=== PATIENT | female | born 1955 | race Hispanic/Latino ===

== ENCOUNTER 2018-06-13 17:53 | Inpatient (IN) | payer OTHER ==
[~2018-06-13] VITALS: Ht 157.5 cm; Wt 72.4 kg
[~2018-06-13 17:53] MED LIST: AEC81 PO; ATOR40TA71 PO; CALC600T12 PO; CARV12.511 PO; CETI10TA57 PO; CHOL400T4 PO; CLOP75TA32 PO; FISH1CAP63 PO; FURO20TA4 PO; LOSA100T20 PO; MONT10TA24 PO; OXYB5TAB10 PO; RANO500T3 PO
[2018-06-13 18:53] LABS: BILIRUBIN,URINE Small (NEGATIVE); COLOR,URINE Dark Yellow (YELLOW); GLUCOSE, URINE (UA) Negative (NEGATIVE); KETONES,URINE Trace mg/dL (NEGATIVE); LEUKOCYTE ESTERASE ,URINE Trace (NEGATIVE); NITRATE,URINE Negative (NEGATIVE); OCCULT BLOOD,URINE Negative (NEGATIVE); PROTEIN,URINE Negative (NEGATIVE)
[2018-06-13 18:55] LABS: APPEARANCE,URINE SLIGHTLY CLOUDY (CLEAR)
[2018-06-13 19:05] LABS: BACTERIA,URINE Few /HPF (None Seen); CALCIUM OXALATE CRYSTALS,UR Few /LPF (None Seen); MUCUS,URINE Moderate LPF (None Seen); RBC,URINE 0-1 /HPF (0-1); SQUAMOUS EPITHELIAL CELL,UR Few /HPF (0-2)
[2018-06-13] MEDS ORDERED: MORPHINE SULFATE 2 MG/ML 1ML SYG ONE (19:29)
[2018-06-13] MEDS ORDERED: ONDANSETRON HCL 4 MG/2 ML VIAL ONE (19:29)
[2018-06-13 19:31] LABS: BASOPHILS % (AUTO) 1.1 % (0.0-5.0); EOSINOPHILS % (AUTO) 0.6 % (0.0-8.0); HEMATOCRIT 43.6 % (36-48); LYMPHOCYTES % (AUTO) 32.3 % (21.0-51.0); MEAN CORPUSCULAR HGB CONC 33.9 g/dL (32.0-36.0); MEAN CORPUSCULAR VOLUME 91.2 fL (79-99); MONOCYTES % (AUTO) 10.1 % (3.0-13.0); NEUTROPHILS % (AUTO) 55.9 % (40.0-77.0); PLATELET COUNT (AUTO) 316 K/uL (130-400); RED BLOOD CELL COUNT(AUTO) 4.78 MIL/uL (4.00-5.50); RED CELL DISTRIBUTION WIDTH 14.2 % (11.0-15.5); WHITE BLOOD COUNT (AUTO) 7.6 K/uL (4.8-10.8)
[2018-06-13] MEDS ORDERED: IOHEXOL-350 75 ML VIAL IV ONE (19:31)
[2018-06-13 19:48] LABS: CREATININE 0.9 mg/dL (0.5-1.5); POTASSIUM 3.9 mmol/L (3.5-5.1)
[2018-06-13 19:52] LABS: ALBUMIN 3.5 g/dL (3.5-5.0); BILIRUBIN,TOTAL 0.9 mg/dL (0.2-1.0); TOTAL PROTEIN, SERUM 7.6 g/dL (6.0-8.3)
[2018-06-13] MEDS ORDERED: ONDANSETRON HCL 4 MG/2 ML VIAL IV PRN (23:45)
[2018-06-13] MEDS ORDERED: LACTULOSE 20 GM/30 ML UDCUP PO PRN (23:45)
[2018-06-13] MEDS ORDERED: MORPHINE SULFATE 2 MG/ML 1ML SYG IV PRN (23:45)
[2018-06-13] MEDS ORDERED: ACETAMINOPHEN 325 MG TAB PO PRN (23:45)
[2018-06-14 00:45] VITALS: BP 112/63
[2018-06-14] MEDS ORDERED: LOSA50TA25 PO (01:40)
[2018-06-14] MEDS: CALCIUM CARBON 500MG CHEW TAB PO SCH ×4 (02:15→21:42)
[2018-06-14 04:00] VITALS: BP 100/52
[2018-06-14] MEDS: SODIUM CHLORIDE 0.9% 1000ML 1,000 ML IV SCH (06:51)
[2018-06-14] MEDS: LEVOFLOXACIN 500 MG/D5W 100 ML 100 ML IV SCH (06:51)
[2018-06-14 08:00] VITALS: BP 93/54
[2018-06-14] MEDS ORDERED: RANOLAZINE 500 MG TAB.SR.12H PO SCH (09:00)
[2018-06-14] MEDS: CARVEDILOL 12.5 MG TABLET PO SCH ×2 (09:00→21:41)
[2018-06-14] MEDS: ENOXAPARIN SODIUM 30 MG/0.3 ML SQ SCH (09:42)
[2018-06-14] MEDS: MONTELUKAST SODIUM 10 MG TAB PO SCH (09:43)
[2018-06-14] MEDS: OXYBUTYNIN CHLORIDE 5 MG TABLET PO SCH ×3 (09:43→21:41)
[2018-06-14] MEDS: CETIRIZINE HCL 5 MG TABLET PO SCH (09:43)
[2018-06-14] MEDS: FAMOTIDINE 20MG TAB 20 MG TAB PO SCH ×2 (09:43→21:41)
[2018-06-14] MEDS: FUROSEMIDE 20 MG TABLET PO SCH (09:43)
[2018-06-14] MEDS: KETOROLAC TROMETHAMINE 15MG/ML IV PRN ×2 (10:04→22:59)
[2018-06-14 11:00] VITALS: BP 99/55
[2018-06-14 16:00] VITALS: BP 96/40
[2018-06-14 19:00] VITALS: BP 131/67
[2018-06-14] MEDS ORDERED: LOSARTAN 100 MG TABLET PO SCH (21:00)
[2018-06-14] MEDS: LOSARTAN 50 MG TABLET PO SCH (21:41)
[2018-06-14] MEDS: ATORVASTATIN CALCIUM 40 MG TABLET PO SCH (21:42)
[2018-06-15] VITALS (13 sets, daily range): BP systolic 89–139; BP diastolic 55–77
[2018-06-15] MEDS: SODIUM CHLORIDE 0.9% 1000ML 1,000 ML IV SCH ×2 (02:15→22:15)
[2018-06-15 06:01] LABS: BASOPHILS % (AUTO) 0.6 % (0.0-5.0); EOSINOPHILS % (AUTO) 0.8 % (0.0-8.0); HEMATOCRIT 40.2 % (36-48); LYMPHOCYTES % (AUTO) 29.9 % (21.0-51.0); MEAN CORPUSCULAR HEMOGLOBIN 31.2 pg (27.0-33.0); MEAN CORPUSCULAR HGB CONC 33.9 g/dL (32.0-36.0); NEUTROPHILS % (AUTO) 59.7 % (40.0-77.0); PLATELET COUNT (AUTO) 291 K/uL (130-400); RED BLOOD CELL COUNT(AUTO) 4.37 MIL/uL (4.00-5.50); RED CELL DISTRIBUTION WIDTH 14.3 % (11.0-15.5)
[2018-06-15 06:09] LABS: POTASSIUM 4.1 mmol/L (3.5-5.1)
[2018-06-15] MEDS: LEVOFLOXACIN 500 MG/D5W 100 ML 100 ML IV SCH (06:17)
[2018-06-15 08:47] LABS: INR 1.02 (0.85-1.15); PARTIAL THROMBOPLASTIN TIME 27.5 SEC (26.3-35.5); PROTHROMBIN TIME 10.7 SEC (9.6-11.6)
[2018-06-15] MEDS: CARVEDILOL 12.5 MG TABLET PO SCH ×2 (08:48→20:51)
[2018-06-15] MEDS: ENOXAPARIN SODIUM 30 MG/0.3 ML SQ SCH (08:50)
[2018-06-15] MEDS: CHOLECALCIFEROL 800 UNIT PO SCH ×3 (09:00→20:54)
[2018-06-15] MEDS: CETIRIZINE HCL 5 MG TABLET PO SCH (09:19)
[2018-06-15] MEDS: KETOROLAC TROMETHAMINE 15MG/ML IV PRN (09:19)
[2018-06-15] MEDS: OXYBUTYNIN CHLORIDE 5 MG TABLET PO SCH ×3 (09:20→20:51)
[2018-06-15] MEDS: FUROSEMIDE 20 MG TABLET PO SCH (09:20)
[2018-06-15] MEDS: FAMOTIDINE 20MG TAB 20 MG TAB PO SCH ×2 (09:20→20:51)
[2018-06-15] MEDS: FISH OIL 1000 MG/CAP PO SCH ×3 (09:20→20:50)
[2018-06-15] MEDS: MONTELUKAST SODIUM 10 MG TAB PO SCH (09:20)
[2018-06-15] MEDS: CALCIUM CARBON 500MG CHEW TAB PO SCH ×3 (09:20→20:50)
[2018-06-15] MEDS ORDERED: FENTANYL CITRATE PF 50 MCG/1 ML 2ML VIAL ONE (11:38)
[2018-06-15] MEDS ORDERED: MIDAZOLAM HCL 1 MG/ML 2ML VIAL ONE (11:38)
[2018-06-15] MEDS ORDERED: LIDOCAINE HCL MPF 1% 5ML VIAL ONE (13:48)
[2018-06-15] MEDS: ATORVASTATIN CALCIUM 40 MG TABLET PO SCH (20:50)
[2018-06-15] MEDS: LOSARTAN 50 MG TABLET PO SCH (20:51)
[2018-06-16] VITALS (14 sets, daily range): BP systolic 96–127; BP diastolic 51–85
[2018-06-16] MEDS: LEVOFLOXACIN 500 MG/D5W 100 ML 100 ML IV SCH (06:01)
[2018-06-16] MEDS: FISH OIL 1000 MG/CAP PO SCH ×3 (08:28→20:57)
[2018-06-16] MEDS: OXYBUTYNIN CHLORIDE 5 MG TABLET PO SCH ×3 (08:28→20:58)
[2018-06-16] MEDS: CHOLECALCIFEROL 800 UNIT PO SCH ×3 (08:28→20:57)
[2018-06-16] MEDS: CETIRIZINE HCL 5 MG TABLET PO SCH (08:29)
[2018-06-16] MEDS: MONTELUKAST SODIUM 10 MG TAB PO SCH (08:29)
[2018-06-16] MEDS: CALCIUM CARBON 500MG CHEW TAB PO SCH ×3 (08:29→20:58)
[2018-06-16] MEDS: ENOXAPARIN SODIUM 30 MG/0.3 ML SQ SCH (08:29)
[2018-06-16] MEDS: FAMOTIDINE 20MG TAB 20 MG TAB PO SCH ×2 (08:29→20:58)
[2018-06-16] MEDS: FUROSEMIDE 20 MG TABLET PO SCH (09:00)
[2018-06-16] MEDS: CARVEDILOL 12.5 MG TABLET PO SCH ×2 (09:12→20:58)
[2018-06-16] MEDS ORDERED: PROPOFOL 10 MG/ML 20ML VIAL IV ONE (18:02)
[2018-06-16] MEDS ORDERED: LIDOCAINE HCL-MPF 2% 5ML VIAL ONE (18:02)
[2018-06-16] MEDS: SODIUM CHLORIDE 0.9% 1000ML 1,000 ML IV SCH (18:15)
[2018-06-16] MEDS: ATORVASTATIN CALCIUM 40 MG TABLET PO SCH (20:57)
[2018-06-16] MEDS: LOSARTAN 50 MG TABLET PO SCH (20:58)
[2018-06-16] MEDS ORDERED: LACTULOSE 20 GM/30 ML UDCUP PO ONE (22:30)
[2018-06-16] MEDS ORDERED: BISACODYL 5 MG TABLET.DR PO ONE (22:30)
[2018-06-16] MEDS ORDERED: PEG 3350/NA SULF,BICARB,CL/KCL 4000 ML SOLN PO ONE (22:30)
[2018-06-16] MEDS ORDERED: MAGNESIUM CITRATE 296 ML SOLUTION PO ONE (22:30)
[2018-06-17] VITALS (13 sets, daily range): BP systolic 94–126; BP diastolic 40–62
[2018-06-17 05:47] LABS: BASOPHILS % (AUTO) 0.6 % (0.0-5.0); EOSINOPHILS % (AUTO) 0.2 % (0.0-8.0); HEMATOCRIT 44.3 % (36-48); LYMPHOCYTES % (AUTO) 18.6 % (21.0-51.0); MEAN CORPUSCULAR HEMOGLOBIN 30.7 pg (27.0-33.0); MEAN CORPUSCULAR HGB CONC 33.3 g/dL (32.0-36.0); MEAN CORPUSCULAR VOLUME 92.3 fL (79-99); MONOCYTES % (AUTO) 9.3 % (3.0-13.0); NEUTROPHILS % (AUTO) 71.3 % (40.0-77.0); PLATELET COUNT (AUTO) 315 K/uL (130-400); RED CELL DISTRIBUTION WIDTH 14.1 % (11.0-15.5); WHITE BLOOD COUNT (AUTO) 8.9 K/uL (4.8-10.8)
[2018-06-17 05:58] LABS: CREATININE 1.3 mg/dL (0.5-1.5); POTASSIUM 4.1 mmol/L (3.5-5.1)
[2018-06-17] MEDS: LEVOFLOXACIN 500 MG/D5W 100 ML 100 ML IV SCH (07:07)
[2018-06-17] MEDS: FISH OIL 1000 MG/CAP PO SCH ×2 (09:00→21:49)
[2018-06-17] MEDS: FAMOTIDINE 20MG TAB 20 MG TAB PO SCH ×2 (09:00→21:48)
[2018-06-17] MEDS: CHOLECALCIFEROL 800 UNIT PO SCH ×2 (09:00→21:00)
[2018-06-17] MEDS: MONTELUKAST SODIUM 10 MG TAB PO SCH (09:00)
[2018-06-17] MEDS: CETIRIZINE HCL 5 MG TABLET PO SCH (09:00)
[2018-06-17] MEDS: OXYBUTYNIN CHLORIDE 5 MG TABLET PO SCH ×2 (09:00→21:48)
[2018-06-17] MEDS: ENOXAPARIN SODIUM 30 MG/0.3 ML SQ SCH (09:00)
[2018-06-17] MEDS: CARVEDILOL 12.5 MG TABLET PO SCH ×2 (09:00→21:48)
[2018-06-17] MEDS: CALCIUM CARBON 500MG CHEW TAB PO SCH ×2 (09:00→21:48)
[2018-06-17] MEDS: FUROSEMIDE 20 MG TABLET PO SCH (09:00)
[2018-06-17] MEDS ORDERED: PROPOFOL 10 MG/ML 20ML VIAL IV ONE ×2 (13:24)
[2018-06-17] MEDS ORDERED: LIDOCAINE HCL-MPF 2% 5ML VIAL ONE (13:25)
[2018-06-17] MEDS: ATORVASTATIN CALCIUM 40 MG TABLET PO SCH (21:49)
[2018-06-17] MEDS: LOSARTAN 50 MG TABLET PO SCH (21:49)
[2018-06-18] VITALS (19 sets, daily range): BP systolic 91–143; BP diastolic 47–73
[2018-06-18] MEDS: LEVOFLOXACIN 500 MG/D5W 100 ML 100 ML IV SCH (05:33)
[2018-06-18 05:50] LABS: BASOPHILS % (AUTO) 0.5 % (0.0-5.0); CREATININE 1.1 mg/dL (0.5-1.5); EOSINOPHILS % (AUTO) 0.5 % (0.0-8.0); HEMATOCRIT 39.6 % (36-48); LYMPHOCYTES % (AUTO) 26.6 % (21.0-51.0); MEAN CORPUSCULAR HGB CONC 33.6 g/dL (32.0-36.0); MEAN CORPUSCULAR VOLUME 92.3 fL (79-99); MONOCYTES % (AUTO) 10.5 % (3.0-13.0); NEUTROPHILS % (AUTO) 61.9 % (40.0-77.0); PLATELET COUNT (AUTO) 295 K/uL (130-400); RED CELL DISTRIBUTION WIDTH 14.4 % (11.0-15.5); WHITE BLOOD COUNT (AUTO) 7.5 K/uL (4.8-10.8)
[2018-06-18] MEDS: CHOLECALCIFEROL 800 UNIT PO SCH (09:00)
[2018-06-18] MEDS: CETIRIZINE HCL 5 MG TABLET PO SCH (09:00)
[2018-06-18] MEDS: CARVEDILOL 12.5 MG TABLET PO SCH (09:00)
[2018-06-18] MEDS: OXYBUTYNIN CHLORIDE 5 MG TABLET PO SCH (09:00)
[2018-06-18] MEDS: ENOXAPARIN SODIUM 30 MG/0.3 ML SQ SCH (09:00)
[2018-06-18] MEDS: CALCIUM CARBON 500MG CHEW TAB PO SCH (09:00)
[2018-06-18] MEDS: FAMOTIDINE 20MG TAB 20 MG TAB PO SCH (09:00)
[2018-06-18] MEDS: MONTELUKAST SODIUM 10 MG TAB PO SCH (09:00)
[2018-06-18] MEDS: FISH OIL 1000 MG/CAP PO SCH (11:55)
[2018-06-18] MEDS ORDERED: PROPOFOL 1000 MG/100 ML 100 ML IV ONE (12:42)
== END 2018-06-18 18:59 | disposition home or self-care (01) | DRG 281 ==
LOC: EDH 17:53 → EDHIP 23:15 → OBSVTOIN 23:15 → 3AH 06-14 00:23
PROVIDERS: ADMIT Hospitalist; ATTEND Hospitalist
PROC: 0FB13ZX Excision of Right Lobe Liver, Percutaneous Approach, Diagnostic (ICD-10-PCS; 2018-06-15)
PROC: 0DJ08ZZ Inspection of Upper Intestinal Tract, Via Natural or Artificial Opening Endoscopic (ICD-10-PCS; principal; 2018-06-16)
PROC: 0DJD8ZZ Inspection of Lower Intestinal Tract, Via Natural or Artificial Opening Endoscopic (ICD-10-PCS; 2018-06-17)
PROC: 0DJ08ZZ Inspection of Upper Intestinal Tract, Via Natural or Artificial Opening Endoscopic (ICD-10-PCS; 2018-06-18)
DX: C78.7 Secondary malignant neoplasm of liver and intrahepatic bile duct (principal); C23 Malignant neoplasm of gallbladder; C16.9 Malignant neoplasm of stomach, unspecified; R16.0 Hepatomegaly, not elsewhere classified; K80.50 Calculus of bile duct without cholangitis or cholecystitis without obstruction; D64.9 Anemia, unspecified; E78.5 Hyperlipidemia, unspecified; I10 Essential (primary) hypertension; N39.0 Urinary tract infection, site not specified; K29.70 Gastritis, unspecified, without bleeding; I25.10 Atherosclerotic heart disease of native coronary artery without angina pectoris; R10.11 Right upper quadrant pain; K64.0 First degree hemorrhoids; K29.00 Acute gastritis without bleeding; K22.8 Other specified diseases of esophagus; K59.00 Constipation, unspecified; Z85.09 Personal history of malignant neoplasm of other digestive organs; Z95.1 Presence of aortocoronary bypass graft; Z90.721 Acquired absence of ovaries, unilateral; Z90.710 Acquired absence of both cervix and uterus; Z90.49 Acquired absence of other specified parts of digestive tract; Z85.43 Personal history of malignant neoplasm of ovary; Z85.42 Personal history of malignant neoplasm of other parts of uterus; Z83.3 Family history of diabetes mellitus; Z82.49 Family history of ischemic heart disease and other diseases of the circulatory system; Z82.3 Family history of stroke; Z82.0 Family history of epilepsy and other diseases of the nervous system
CPT/HCPCS: 36415; 43235; 45378; 47000; 71045; 74177; 76942; 80048; 80053; 81001; 82105; 82378; 82550; 83690; 83880; 84484; 85025; 85610; 85730; 86316; 87088; 88305; 88307; 93005; 93306; 99152; J1650; J1885; J1956; J2250; J2405; J2704; J3010; J3490; Q9967

== ENCOUNTER 2018-07-28 09:30 | Day surgery (SDC) | payer OTHER ==
[~2018-07-28 09:30] MED LIST changes: +LOSA50TA25 PO; +SODIUM CHLORIDE 0.9% 1000ML 1,000 ML IV ONE
[2018-07-28] MEDS ORDERED: LOSA50TA25 PO (11:08)
[2018-07-28] MEDS ORDERED: CALC600T12 PO (11:11)
[2018-07-28] MEDS ORDERED: OMEG-148 PO (11:11)
[2018-07-28] MEDS ORDERED: POTASSIUM CHLORIDE 20MEQ/100ML 100 ML IV ONE (11:30)
[2018-07-31] MEDS ORDERED: POTA20TA82 PO (18:04)
== END 2018-07-28 10:54 | disposition home or self-care (01) ==
LOC: DAH 09:30 → ENDO 09:30
PROVIDERS: ATTEND Internal Medicine
DX: R93.3 Abnormal findings on diagnostic imaging of other parts of digestive tract (principal); Z53.9 Procedure and treatment not carried out, unspecified reason; C22.9 Malignant neoplasm of liver, not specified as primary or secondary; R00.1 Bradycardia, unspecified; Z85.05 Personal history of malignant neoplasm of liver; Z90.49 Acquired absence of other specified parts of digestive tract; Z95.1 Presence of aortocoronary bypass graft; I21.3 ST elevation (STEMI) myocardial infarction of unspecified site; Z79.899 Other long term (current) drug therapy; I25.10 Atherosclerotic heart disease of native coronary artery without angina pectoris; I50.9 Heart failure, unspecified
CPT/HCPCS: 36415; 84132; 93005; J3480; J7030